=== PATIENT | female | born 1975 | race Caucasian/White ===

== ENCOUNTER → 2022-09-28 10:35 | Outpatient (CLI) | payer OTHER, SELFPAY ==
[2022-09-28 12:28] LABS: Add Manual Diff / Slide Review NO; Basophils Absolute Auto 100 /uL (0-100); Basophils Percent Auto 0.7 % (0-2); Eosinophils Absolute Auto 300 /uL (0-450); Eosinophils Percent Auto 2.5 % (2-4); Hematocrit 37.3 % (36-46); Hemoglobin 12.3 g/dL (12.0-16.0); Lymphocytes Absolute Auto 2500 /uL (1100-4500); Lymphocytes Percent Auto 24.6 % (25-40); Mean Corpuscular Hemoglobin 26.4 PG (26-34); Mean Corpuscular Volume 79.8 fL (80-100); Monocytes Absolute Auto 400 /uL (0-900); Monocytes Percent Auto 3.9 % (3-14); Neutrophils Absolute Auto 7000 /uL (1500-7000); Neutrophils Percent Auto 68.3 % (50-75); Platelet Count 487 X10^3/uL (150-400); Red Blood Cell Count 4.68 X10^6/uL (4.0-5.2); Red Cell Distribution Width 14.5 % (11.6-14.8); White Blood Cell Count 10.2 X10^3/uL (4.5-11.0)
[2022-09-28 12:45] LABS: Erythrocyte Sedimentation Rate 23 MM/HR (0-20)
[2022-09-28 12:49] LABS: Albumin 4.2 g/dL (3.5-5.0); Albumin Globulin Ratio 1.2 (1.0-2.8); Blood Urea Nitrogen 13 mg/dL (7-17); C-Reactive Protein Quant 2.5 mg/dL (<1.0); Calcium 8.7 mg/dL (8.4-10.2); Carbon Dioxide 28 mmol/L (22-32); Chloride 102 mmol/L (98-107); Globulin 3.4 g/dL (1.7-4.1); Glucose 93 mg/dL (70-100); HDL Cholesterol 42 mg/dL (40-60); HEMOLYSIS < 15 (0-50); Potassium 3.9 mmol/L (3.4-5.1); Sodium 137 mmol/L (137-145); Total Protein 7.6 g/dL (6.3-8.2); Triglycerides 87 mg/dL (35-150)
[2022-09-28 12:51] LABS: Rheumatoid Factor < 8.6 IU/mL (<12.0)
[2022-09-28 12:52] LABS: BUN Creatinine Ratio 19.4 (6-22); Cholesterol 225 mg/dL (140-199); Estimated Glomerular Filt Rate > 60 mL/min (>60); LDL Cholesterol Calculated 166 mg/dL (<100)
[2022-09-28 12:55] LABS: Alanine Aminotransferase 25 IU/L (<35); Alkaline Phosphatase 78 U/L (38-126); Aspartate Aminotransferase 25 IU/L (14-36); Bilirubin Total 0.4 mg/dL (0.2-1.3)
[2022-09-28 13:16] LABS: TSH w/ Reflex to FT4 1.17 uIU/mL (0.47-4.68)
[2022-09-30 21:15] LABS: DNA (DS) Antibody 1 IU/mL (0-9)
[2022-10-03 14:38] LABS: ANA Screen, IFA Negative (.)
== END ==
PROVIDERS: PCP Physician Assistant Medical; Referring Provider Physician Assistant Medical; Visit Provider Physician Assistant Medical
DX: M25.50 Pain in unspecified joint (principal); Z00.00 Encounter for general adult medical examination without abnormal findings
CPT/HCPCS: 36415; 80053; 80061; 84443; 85025; 85651; 86038; 86140; 86225; 86430